=== PATIENT | female | born 1955 ===

== ENCOUNTER 2022-12-15 05:55 | Day surgery (SDC) | payer OTHER ==
[~2022-12-15 05:55] MED LIST: CLONAZEPAM1 MG PO; FENOFIB PO; HORIZANT300 MG PO; JANUVIA50 MG PO; PREVACID30 MG PO
[2022-12-15] MEDS ORDERED: MACROBID 100 M100 MG PO (10:04)
[2022-12-15] MEDS ORDERED: TRAM1TAB98 PO (10:06)
== END 2022-12-15 14:00 | disposition home or self-care (01) ==
LOC: CIR.AMB 05:55
PROVIDERS: ATTEND Obstetrics & Gynecology Gynecology
DX: N81.11 Cystocele, midline (principal); N81.5 Vaginal enterocele; N81.6 Rectocele; Z20.822 Contact with and (suspected) exposure to COVID-19; Z88.0 Allergy status to penicillin